=== PATIENT | female | born 1995 | race African-American/Black ===

== ENCOUNTER 2022-01-20 18:47 | Emergency (ER) | payer OTHER ==
[~2022-01-20 18:47] MED LIST: COLACE100 MG PO; PRENATAL FORMU1 EACH PO; PROCTOZONE-HC 230 GM TOP
[2022-01-20] MEDS ORDERED: MOTRIN600 MG PO (19:36)
[2022-01-20] MEDS ORDERED: CYCLOBENZAPRINE10 MG PO (19:36)
== END 2022-01-20 21:31 | disposition home or self-care (01) ==
LOC: FER 18:47
DX: S16.1XXA Strain of muscle, fascia and tendon at neck level, initial encounter (principal); S39.012A Strain of muscle, fascia and tendon of lower back, initial encounter; I10 Essential (primary) hypertension; F17.290 Nicotine dependence, other tobacco product, uncomplicated; V43.52XA Car driver injured in collision with other type car in traffic accident, initial encounter; Z28.310 Unvaccinated for COVID-19
CPT/HCPCS: 99283